=== PATIENT | male | born 1980 | race Caucasian/White ===

== ENCOUNTER 2018-05-07 17:49 | Emergency (ER) | payer OTHER, SELFPAY ==
[2018-05-07 17:57] VITALS: BP 157/88; PULSE 76; RESP 15; TEMP 36.4; O2SAT 100; BMI 26.0
--- NOTE | 2018-05-07 18:11 | PC.NURSE ---
pt c/o left arm pain describes it as like i bench pressed 400lbs, and tore my muscle.
--- NOTE | 2018-05-07 18:21 | DI.CT.S_ITS ---
PROCEDURE: CT HEAD/BRAIN WO CON INDICATIONS: confusion, arm weakness TECHNIQUE: Noncontrast 4.5 mm thick angled axial sections acquired from the foramen magnum to the vertex, with coronal and sagittal reformats. For radiation dose reduction, the following was used: automated exposure control, adjustment of mA and/or kV according to patient size. COMPARISON: None. FINDINGS: Image quality: Excellent. CSF spaces: Basal cisterns are patent. No extra-axial fluid collections. Ventricles are normal in size and shape. Brain: No midline shift. No intracranial masses or hemorrhage. Carrillo-white matter interface is normal. Skull and face: Calvarium and visualized facial bones are intact, without suspicious lesions. Sinuses: Visualized sinuses and mastoids are clear. IMPRESSION: No acute intracranial abnormality. Dictated by: Kena Stafford M.D. on 05/07/2018 at 19:01 Approved by: Kena Stafford M.D. on 05/07/2018 at 19:01
--- NOTE | 2018-05-07 18:21 | DI.RAD.S_ITS ---
PROCEDURE: XR CHEST 1V INDICATIONS: possible barotrauma TECHNIQUE: One view of the chest was acquired. COMPARISON: None. FINDINGS: Surgical changes and devices: None. Lungs and pleura: No pleural effusions or pneumothorax. Lungs are clear. Mediastinum: Mediastinal contours appear normal. Heart size is normal. Bones and chest wall: No suspicious bony lesions. Overlying soft tissues appear unremarkable. IMPRESSION: No acute process. Dictated by: Kena Stafford M.D. on 05/07/2018 at 19:00 Approved by: Kena Stafford M.D. on 05/07/2018 at 19:01
[2018-05-07 18:42] LABS: HCO3 ABG 26 mmol/L (23-27); PO2 ABG 80 mmHg (80-105); pH ABG 7.51 (7.35-7.45)
[2018-05-07 18:43] LABS: Fractionated Inspired Oxygen 21; Oxygen Saturation ABG 97 % (95-100); TCO2 ABG 26 mmol/L (23-27)
[2018-05-07] MEDS: KETOROLAC 60 MG/2 ML VIAL 15 MG IV (18:56)
--- NOTE | 2018-05-07 18:56 | ED.EXTPRO ---
HPI - Extremity Problem General Chief complaint: Extremity Problem,Nontraumatic Stated complaint: de-compression sickness from diving Time Seen by Provider: 05/07/18 18:12 Source: patient Mode of arrival: ambulatory Limitations: no limitations History of Present Illness HPI Narrative: 38-year-old otherwise healthy male presents to the emergency department with his and a chief complaint of left shoulder and upper arm pain since yesterday. 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 All guys were approximately 30 min and the patient's total bottom time about 4 hr. He was breathing compressed air and performed safety stops on each a set. The patient took a minimal 15 min break and maximal 1 hr break between each dive. His maximum depth was 75 ft. He started developing pain at about 3:30 p.m.. He had multiple dives after the onset of his pain and states that on subsequent dives his pain improved. He denies any chest pain, shortness of breath and blurred vision. Patient went to work again today and attempted to dive and felt so poorly that he was unable to complete his work because of the pain and now bilateral upper extremity weakness. He had no thorough evaluation scene. He waited until today because he thought maybe the shoulder pain yesterday was purely an orthopedic injury. He does not obviously have a worsening of his symptoms with range of motion. Complaint: extremity pain Onset (ago): hour(s) Pain Consistency: constant Location: left Quality: aching Radiation: none Relieving factors: nothing Exacerbating factors: range of motion Related Data Home Medications Medication Instructions Recorded Confirmed aspirin-caffeine 500 mg-32.5 mg tab PO tab 05/07/18 05/07/18 tablet ibuprofen 800 mg tablet 800 mg PO TID 05/07/18 05/07/18 Allergies Allergy/AdvReac Type Severity Reaction Status Date / Time Penicillins Allergy Verified 05/07/18 17:57 Review of Systems Review of Systems All systems reviewed & are unremarkable except as noted in HPI and below Constitutional Denies chills, Denies fever(s), Denies lethargy and Denies weakness Eyes Denies change in vision, Denies eye discharge, Denies irritation and Denies loss of vision ENT Ears, Nose, Mouth, and Throat: Denies change in voice, Denies neck pain and Denies sore throat Cardiovascular Denies chest pain, Denies irregular heart rhythm, Denies lightheadedness, Denies palpitations, Denies dyspnea, Denies dyspnea on exertion and Denies orthopnea Respiratory Denies cough, Denies dyspnea, Denies dyspnea on exertion and Denies wheezing Gastrointestinal Gastrointestinal: Denies abdominal pain, Denies change in bowel habits, Denies diarrhea, Denies nausea and Denies vomiting Genitourinary Denies hematuria, Denies flank pain, Denies urinary incontinence and Denies urinary urgency Musculoskeletal Reports limited range of motion and Denies neck pain Integumentary/Breasts Denies pruritus, Denies erythema, Denies rash and Denies wounds Neurologic Denies confusion, Denies loss of vision and Denies weakness Psychiatric Denies anxiety, Denies confusion, Denies depression, Denies homicidal ideation and Denies suicidal ideation Endocrine Denies palpitations Hematologic/Lymphatic Denies easy bruising Allergic/Immunologic Denies wheezing [facility] Social History Smoking Status: Never smoker alcohol intake: current Exam Narrative Exam Narrative: GENERAL: This is a well-nourished, well-developed patient, in mild distress. HEAD: Atraumatic. Normocephalic. No temporal or scalp tenderness. EYES: Pupils equal round and reactive. Extraocular motions intact. No scleral icterus. No injection or drainage. ENT: Nose without bleeding, purulent drainage or septal hematoma. Throat without erythema, tonsillar hypertrophy or exudate. Uvula midline. Airway patent. NECK: Trachea midline. No JVD or lymphadenopathy. Supple, nontender, no meningeal signs. CARDIOVASCULAR: Regular rate and rhythm without murmurs, gallops, or rubs. RESPIRATORY: Clear to auscultation. Breath sounds equal bilaterally. No wheezes, rales, or rhonchi. GASTROINTESTINAL: Abdomen soft, non-tender, nondistended. No hepato-splenomegaly, or palpable masses. No guarding. EXTREMITIES: No clubbing, cyanosis, or edema. No joint tenderness, effusion, or edema noted. No obvious or reproducible pain with range of motion BACK: Nontender without deformity or crepitance. No flank tenderness. NEURO: AOx3. SKIN: No rash or erythema. NIH Stroke Scale 1a. LOC: Patient is alert and keenly responsive (0) 1b. LOC Questions: Patient answers both LOC questions accurately (0) 1c. LOC Commands: Patient performs both tasks correctly (0) 2. Best Gaze: Normal (0) 3. Visual: No visual loss (0) 4. Facial palsy: Normal symmetrical movements (0) 5. Motor arm: No drift (0) 6. Motor leg: No drift (0) 7. Limb ataxia: Absent (0) 8. Sensory: Normal (0) 9. Best language: No aphasia; normal (0) 10. Dysarthria: Normal (0) 11. Extinction and inattention: No abnormality (0) NIHSS: 0 Initial Vital Signs Initial Vital Signs: Vital Signs Temperature 97.5 F L 05/07/18 17:57 Pulse Rate 76 05/07/18 17:57 Respiratory Rate 15 05/07/18 17:57 Blood Pressure 157/88 H 05/07/18 17:57 Pulse Oximetry 100 05/07/18 17:57 Course Course Narrative: Symptoms and presentation are most worrisome for decompression illness. I initially contacted the diapers alert at work and they sure the opinion that a discussion with [facility] is most appropriate. I have spoken with the dive medicine provider at [facility], Dr. Nelson, whom sugars the opinion transfer for barometric treatment as most appropriate. I have contacted [facility] a regarding this case and they agree with the plan of made a note Orders Ordered: ED Orders 05/07/18 18:10 EKG-12 Lead Routine 05/07/18 18:21 CT head/brain wo con Stat XR chest 1V Stat 05/07/18 18:30 Arterial Blood Gas Stat 05/07/18 18:45 Complete Blood Count AUTO DIFF Stat Comprehensive Metabolic Panel Stat Troponin & CK Cardiac Panel Stat 05/07/18 19:05 Lactate (Lactic Acid) Stat Discontinued Medications Hydromorphone HCl (Dilaudid) 0.5 mg IV NOW ONE Stop: 05/07/18 22:46 Last Admin: 05/07/18 23:00 Dose: 0.5 mg Ketorolac Tromethamine (Toradol) 15 mg IV NOW ONE Stop: 05/07/18 18:25 Last Admin: 05/07/18 18:56 Dose: 15 mg Vital Signs - 8 hr 05/07/18 17:57 05/07/18 21:00 05/07/18 21:30 Temperature 97.5 F L Pulse Rate 76 78 85 Respiratory Rate 15 14 Blood Pressure 157/88 H Blood Pressure [Left Arm] 143/85 H 146/78 H Pulse Oximetry 100 100 100 05/07/18 22:30 05/07/18 23:14 Temperature Pulse Rate 83 85 Respiratory Rate 15 15 Blood Pressure 135/65 Blood Pressure [Left Arm] 132/78 Pulse Oximetry 100 100 MDM - Extremity (Nontraumatic) Lab Data Result diagrams: 05/07/18 18:45 05/07/18 18:45 Lab Results 05/07/18 05/07/18 05/07/18 Range/Units 18:30 18:45 18:45 WBC 8.4 (4.5-11.0) X10^3/uL RBC 4.68 (4.5-5.9) X10^6/uL Hgb 14.3 (13.5-17.5) g/dL Hct 40.9 L (41-53) % MCV 87.5 (80-100) fL MCH 30.5 (26-34) PG MCHC 34.9 (30-36) % RDW 12.4 (11.6-14.8) % Plt Count 202 (150-400) X10^3/uL Neut % (Auto) 70.9 (50-75) % Lymph % (Auto) 19.5 L (25-40) % Haines % (Auto) 6.4 (3-14) % Eos % (Auto) 2.4 (2-4) % Baso % (Auto) 0.8 (0-2) % Neut # (Auto) 6000 H (8385-7336) /uL ABG pH 7.51 H (7.35-7.45) ABG pCO2 32.0 L (35-45) mmHg ABG pO2 80 (80-105) mmHg ABG HCO3 26 (23-27) mmol/L ABG Total CO2 26 (23-27) mmol/L ABG O2 Saturation 97 (95-100) % ABG Base Excess 2.0 (-2-3) mmol/L FiO2 21 Sodium 140 (137-145) mmol/L Potassium 4.0 (3.4-5.1) mmol/L Chloride 103 (98-107) mmol/L Carbon Dioxide 27 (22-32) mmol/L BUN 17 (9-20) mg/dL Creatinine 0.80 (0.66-1.25) mg/dL Estimated GFR > 60.0 (>60) mL/min BUN/Creatinine Ratio 21.3 (6-22) Glucose 101 H (70-100) mg/dL Lactate (0.7-2.1) mmol/L Calcium 9.6 (8.4-10.2) mg/dL Total Bilirubin 0.7 (0.2-1.3) mg/dL AST 37 (17-59) IU/L ALT 48 (21-72) IU/L Alkaline Phosphatase 56 (38-126) U/L Total Creatine Kinase 204 H (55-170) U/L CK-MB (CK-2) 1.23 (<2.37) ng/mL CK-MB (CK-2) Rel Index 0.6 L (1.5-5.0) % Troponin I < 0.012 (0.01-0.034) ng/mL Total Protein 7.6 (6.3-8.2) g/dL Albumin 4.5 (3.5-5.0) g/dL Globulin 3.1 (1.7-4.1) g/dL Albumin/Globulin Ratio 1.5 (1.0-2.8) 05/07/18 Range/Units 19:05 WBC (4.5-11.0) X10^3/uL RBC (4.5-5.9) X10^6/uL Hgb (13.5-17.5) g/dL Hct (41-53) % MCV (80-100) fL MCH (26-34) PG MCHC (30-36) % RDW (11.6-14.8) % Plt Count (150-400) X10^3/uL Neut % (Auto) (50-75) % Lymph % (Auto) (25-40) % Haines % (Auto) (3-14) % Eos % (Auto) (2-4) % Baso % (Auto) (0-2) % Neut # (Auto) (7922-2505) /uL ABG pH (7.35-7.45) ABG pCO2 (35-45) mmHg ABG pO2 (80-105) mmHg ABG HCO3 (23-27) mmol/L ABG Total CO2 (23-27) mmol/L ABG O2 Saturation (95-100) % ABG Base Excess (-2-3) mmol/L FiO2 Sodium (137-145) mmol/L Potassium (3.4-5.1) mmol/L Chloride (98-107) mmol/L Carbon Dioxide (22-32) mmol/L BUN (9-20) mg/dL Creatinine (0.66-1.25) mg/dL Estimated GFR (>60) mL/min BUN/Creatinine Ratio (6-22) Glucose (70-100) mg/dL Lactate 1.2 (0.7-2.1) mmol/L Calcium (8.4-10.2) mg/dL Total Bilirubin (0.2-1.3) mg/dL AST (17-59) IU/L ALT (21-72) IU/L Alkaline Phosphatase (38-126) U/L Total Creatine Kinase (55-170) U/L CK-MB (CK-2) (<2.37) ng/mL CK-MB (CK-2) Rel Index (1.5-5.0) % Troponin I (0.01-0.034) ng/mL Total Protein (6.3-8.2) g/dL Albumin (3.5-5.0) g/dL Globulin (1.7-4.1) g/dL Albumin/Globulin Ratio (1.0-2.8) Imaging Data CT scan - head: Radiologist's impression: [place] [address] CT Scan Report Signed Patient: Lj Goff [facility]#: [id number] : 1980Acct:[id number] Age/Sex: 38 / MDate of Service: 05/07/18 Loc: ED Accession Number: [id number] Procedure: CT head/brain wo con Ordering Provider: Adonis Toro D.O. PROCEDURE: CT HEAD/BRAIN WO CON INDICATIONS: confusion, arm weakness TECHNIQUE: Noncontrast 4.5 mm thick angled axial sections acquired from the foramen magnum to the vertex, with coronal and sagittal reformats. For radiation dose reduction, the following was used: automated exposure control, adjustment of mA and/or kV according to patient size. COMPARISON: None. FINDINGS: Image quality: Excellent. CSF spaces: Basal cisterns are patent. No extra-axial fluid collections. Ventricles are normal in size and shape. Brain: No midline shift. No intracranial masses or hemorrhage. Carrillo-white matter interface is normal. Skull and face: Calvarium and visualized facial bones are intact, without suspicious lesions. Sinuses: Visualized sinuses and mastoids are clear. IMPRESSION: No acute intracranial abnormality. Dictated by: Kena Stafford M.D. on 05/07/2018 at 19:01 Approved by: Kena Stafford M.D. on 05/07/2018 at 19:01 Chest x-ray: Attestation: I personally reviewed and interpreted this imaging study as follows: My impression: NAP Radiologist's impression: [address] [address] [address] Scan Report Signed Patient: Lj Goff [facility]#: [id number] : 1980Acct:[id number] Age/Sex: 38 / MDate of Service: 05/07/18 Loc: ED Accession Number: [id number] Procedure: CT head/brain wo con Ordering Provider: Adonis Toro D.O. PROCEDURE: CT HEAD/BRAIN WO CON INDICATIONS: confusion, arm weakness TECHNIQUE: Noncontrast 4.5 mm thick angled axial sections acquired from the foramen magnum to the vertex, with coronal and sagittal reformats. For radiation dose reduction, the following was used: automated exposure control, adjustment of mA and/or kV according to patient size. COMPARISON: None. FINDINGS: Image quality: Excellent. CSF spaces: Basal cisterns are patent. No extra-axial fluid collections. Ventricles are normal in size and shape. Brain: No midline shift. No intracranial masses or hemorrhage. Carrillo-white matter interface is normal. Skull and face: Calvarium and visualized facial bones are intact, without suspicious lesions. Sinuses: Visualized sinuses and mastoids are clear. PROCEDURE: XR CHEST 1V INDICATIONS: possible barotrauma TECHNIQUE: One view of the chest was acquired. COMPARISON: None. FINDINGS: Surgical changes and devices: None. Lungs and pleura: No pleural effusions or pneumothorax. Lungs are clear. Mediastinum: Mediastinal contours appear normal. Heart size is normal. Bones and chest wall: No suspicious bony lesions. Overlying soft tissues appear unremarkable. IMPRESSION: No acute process. Dictated by: Kena Stafford M.D. on 05/07/2018 at 19:00 Approved by: Kena Stafford M.D. on 05/07/2018 at 19:01 Discharge Plan Departure Patient Disposition: [facility] Clinical Impression: Decompression sickness Discharge Date/Time: 05/08/18 00:04 Interventions: ED Discharge Assessment Last Done: 05/07/18 23:14 Prescriptions: No Action ibuprofen 800 mg tablet 800 mg PO TID RF: 0 aspirin-caffeine [Sergio Back and Body] 500-32.5 mg tablet PO RF: 0
[2018-05-07 19:00] LABS: Add Manual Diff / Slide Review NO; Basophils Percent Auto 0.8 % (0-2); Eosinophils Percent Auto 2.4 % (2-4); Hematocrit 40.9 % (41-53); Hemoglobin 14.3 g/dL (13.5-17.5); Lymphocytes Percent Auto 19.5 % (25-40); Mean Corpuscular HGB Conc 34.9 % (30-36); Mean Corpuscular Hemoglobin 30.5 PG (26-34); Mean Corpuscular Volume 87.5 fL (80-100); Monocytes Percent Auto 6.4 % (3-14); Neutrophils Absolute Auto 6000 /uL (3000-5900); Neutrophils Percent Auto 70.9 % (50-75); Platelet Count 202 X10^3/uL (150-400); Red Blood Cell Count 4.68 X10^6/uL (4.5-5.9); Red Cell Distribution Width 12.4 % (11.6-14.8); White Blood Cell Count 8.4 X10^3/uL (4.5-11.0)
[2018-05-07 19:18] LABS: Alanine Aminotransferase 48 IU/L (21-72); Albumin 4.5 g/dL (3.5-5.0); Albumin Globulin Ratio 1.5 (1.0-2.8); Alkaline Phosphatase 56 U/L (38-126); Aspartate Aminotransferase 37 IU/L (17-59); BUN Creatinine Ratio 21.3 (6-22); Bilirubin Total 0.7 mg/dL (0.2-1.3); Blood Urea Nitrogen 17 mg/dL (9-20); Calcium 9.6 mg/dL (8.4-10.2); Carbon Dioxide 27 mmol/L (22-32); Chloride 103 mmol/L (98-107); Creatine Kinase 204 U/L (55-170); Estimated Glomerular Filt Rate > 60.0 mL/min (>60); Globulin 3.1 g/dL (1.7-4.1); Glucose 101 mg/dL (70-100); HEMOLYSIS < 15 (0-50); Sodium 140 mmol/L (137-145); Total Protein 7.6 g/dL (6.3-8.2)
[2018-05-07 19:34] LABS: CKMB % Relative Index 0.6 % (1.5-5.0); Creatine Kinase MB 1.23 ng/mL (<2.37); Troponin I < 0.012 ng/mL (0.01-0.034)
[2018-05-07 19:39] LABS: Lactate (Lactic Acid) 1.2 mmol/L (0.7-2.1)
[2018-05-07 21:00] VITALS: BP 143/85; PULSE 78; RESP 14; O2SAT 100
[2018-05-07 21:30] VITALS: BP 146/78; PULSE 85; O2SAT 100
[2018-05-07 22:30] VITALS: BP 132/78; PULSE 83; RESP 15; O2SAT 100
--- NOTE | 2018-05-07 22:45 | ED_ITS ---
HPI - Extremity Problem General Chief complaint: Extremity Problem,Nontraumatic Stated complaint: de-compression sickness from diving Time Seen by Provider: 05/07/18 18:12 Source: patient Mode of arrival: ambulatory Limitations: no limitations History of Present Illness HPI Narrative: 38-year-old otherwise healthy male presents to the emergency department with his and a chief complaint of left shoulder and upper arm pain since yesterday. 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 All guys were approximately 30 min and the patient's total bottom time about 4 hr. He was breathing compressed air and performed safety stops on each a set. The patient took a minimal 15 min break and maximal 1 hr break between each dive. His maximum depth was 75 ft. He started developing pain at about 3:30 p.m.. He had multiple dives after the onset of his pain and states that on subsequent dives his pain improved. He denies any chest pain, shortness of breath and blurred vision. Patient went to work again today and attempted to dive and felt so poorly that he was unable to complete his work because of the pain and now bilateral upper extremity weakness. He had no thorough evaluation scene. He waited until today because he thought maybe the shoulder pain yesterday was purely an orthopedic injury. He does not obviously have a worsening of his symptoms with range of motion. Complaint: extremity pain Onset (ago): hour(s) Pain Consistency: constant Location: left Quality: aching Radiation: none Relieving factors: nothing Exacerbating factors: range of motion Related Data Home Medications Medication Instructions Recorded Confirmed aspirin-caffeine 500 mg-32.5 mg tab PO tab 05/07/18 05/07/18 tablet ibuprofen 800 mg tablet 800 mg PO TID 05/07/18 05/07/18 Allergies Allergy/AdvReac Type Severity Reaction Status Date / Time Penicillins Allergy Verified 05/07/18 17:57 Review of Systems Review of Systems All systems reviewed & are unremarkable except as noted in HPI and below Constitutional Denies chills, Denies fever(s), Denies lethargy and Denies weakness Eyes Denies change in vision, Denies eye discharge, Denies irritation and Denies loss of vision ENT Ears, Nose, Mouth, and Throat: Denies change in voice, Denies neck pain and Denies sore throat Cardiovascular Denies chest pain, Denies irregular heart rhythm, Denies lightheadedness, Denies palpitations, Denies dyspnea, Denies dyspnea on exertion and Denies orthopnea Respiratory Denies cough, Denies dyspnea, Denies dyspnea on exertion and Denies wheezing Gastrointestinal Gastrointestinal: Denies abdominal pain, Denies change in bowel habits, Denies diarrhea, Denies nausea and Denies vomiting Genitourinary Denies hematuria, Denies flank pain, Denies urinary incontinence and Denies urinary urgency Musculoskeletal Reports limited range of motion and Denies neck pain Integumentary/Breasts Denies pruritus, Denies erythema, Denies rash and Denies wounds Neurologic Denies confusion, Denies loss of vision and Denies weakness Psychiatric Denies anxiety, Denies confusion, Denies depression, Denies homicidal ideation and Denies suicidal ideation Endocrine Denies palpitations Hematologic/Lymphatic Denies easy bruising Allergic/Immunologic Denies wheezing [facility] Social History Smoking Status: Never smoker alcohol intake: current Exam Narrative Exam Narrative: GENERAL: This is a well-nourished, well-developed patient, in mild distress. HEAD: Atraumatic. Normocephalic. No temporal or scalp tenderness. EYES: Pupils equal round and reactive. Extraocular motions intact. No scleral icterus. No injection or drainage. ENT: Nose without bleeding, purulent drainage or septal hematoma. Throat without erythema, tonsillar hypertrophy or exudate. Uvula midline. Airway patent. NECK: Trachea midline. No JVD or lymphadenopathy. Supple, nontender, no meningeal signs. CARDIOVASCULAR: Regular rate and rhythm without murmurs, gallops, or rubs. RESPIRATORY: Clear to auscultation. Breath sounds equal bilaterally. No wheezes , rales, or rhonchi. GASTROINTESTINAL: Abdomen soft, non-tender, nondistended. No hepato-splenomegaly , or palpable masses. No guarding. EXTREMITIES: No clubbing, cyanosis, or edema. No joint tenderness, effusion, or edema noted. No obvious or reproducible pain with range of motion BACK: Nontender without deformity or crepitance. No flank tenderness. NEURO: AOx3. SKIN: No rash or erythema. NIH Stroke Scale 1a. LOC: Patient is alert and keenly responsive (0) 1b. LOC Questions: Patient answers both LOC questions accurately (0) 1c. LOC Commands: Patient performs both tasks correctly (0) 2. Best Gaze: Normal (0) 3. Visual: No visual loss (0) 4. Facial palsy: Normal symmetrical movements (0) 5. Motor arm: No drift (0) 6. Motor leg: No drift (0) 7. Limb ataxia: Absent (0) 8. Sensory: Normal (0) 9. Best language: No aphasia; normal (0) 10. Dysarthria: Normal (0) 11. Extinction and inattention: No abnormality (0) NIHSS: 0 Initial Vital Signs Initial Vital Signs: Vital Signs Temperature 97.5 F L 05/07/18 17:57 Pulse Rate 76 05/07/18 17:57 Respiratory Rate 15 05/07/18 17:57 Blood Pressure 157/88 H 05/07/18 17:57 Pulse Oximetry 100 05/07/18 17:57 Course Course Narrative: Symptoms and presentation are most worrisome for decompression illness. I initially contacted the diapers alert at work and they sure the opinion that a discussion with [facility] is most appropriate. I have spoken with the dive medicine provider at [facility], Dr. Nelson, whom sugars the opinion transfer for barometric treatment as most appropriate. I have contacted [facility] a regarding this case and they agree with the plan of made a note Orders Ordered: ED Orders 05/07/18 18:10 EKG-12 Lead Routine 05/07/18 18:21 CT head/brain wo con Stat XR chest 1V Stat 05/07/18 18:30 Arterial Blood Gas Stat 05/07/18 18:45 Complete Blood Count AUTO DIFF Stat Comprehensive Metabolic Panel Stat Troponin & CK Cardiac Panel Stat 05/07/18 19:05 Lactate (Lactic Acid) Stat Discontinued Medications Hydromorphone HCl (Dilaudid) 0.5 mg IV NOW ONE Stop: 05/07/18 22:46 Last Admin: 05/07/18 23:00 Dose: 0.5 mg Ketorolac Tromethamine (Toradol) 15 mg IV NOW ONE Stop: 05/07/18 18:25 Last Admin: 05/07/18 18:56 Dose: 15 mg Vital Signs - 8 hr 05/07/18 17:57 05/07/18 21:00 05/07/18 21:30 Temperature 97.5 F L Pulse Rate 76 78 85 Respiratory Rate 15 14 Blood Pressure 157/88 H Blood Pressure [Left Arm] 143/85 H 146/78 H Pulse Oximetry 100 100 100 05/07/18 22:30 05/07/18 23:14 Temperature Pulse Rate 83 85 Respiratory Rate 15 15 Blood Pressure 135/65 Blood Pressure [Left Arm] 132/78 Pulse Oximetry 100 100 MDM - Extremity (Nontraumatic) Lab Data Result diagrams: 05/07/18 18:45 05/07/18 18:45 Lab Results 05/07/18 05/07/18 05/07/18 Range/Units 18:30 18:45 18:45 WBC 8.4 (4.5-11.0) X10^3/uL RBC 4.68 (4.5-5.9) X10^6/uL Hgb 14.3 (13.5-17.5) g/dL Hct 40.9 L (41-53) % MCV 87.5 (80-100) fL MCH 30.5 (26-34) PG MCHC 34.9 (30-36) % RDW 12.4 (11.6-14.8) % Plt Count 202 (150-400) X10^3/uL Neut % (Auto) 70.9 (50-75) % Lymph % (Auto) 19.5 L (25-40) % [place] % (Auto) 6.4 (3-14) % Eos % (Auto) 2.4 (2-4) % Baso % (Auto) 0.8 (0-2) % Neut # (Auto) 6000 H (7982-0370) /uL ABG pH 7.51 H (7.35-7.45) ABG pCO2 32.0 L (35-45) mmHg ABG pO2 80 (80-105) mmHg ABG HCO3 26 (23-27) mmol/L ABG Total CO2 26 (23-27) mmol/L ABG O2 Saturation 97 (95-100) % ABG Base Excess 2.0 (-2-3) mmol/L FiO2 21 Sodium 140 (137-145) mmol/L Potassium 4.0 (3.4-5.1) mmol/L Chloride 103 (98-107) mmol/L Carbon Dioxide 27 (22-32) mmol/L BUN 17 (9-20) mg/dL Creatinine 0.80 (0.66-1.25) mg/dL Estimated GFR > 60.0 (>60) mL/min BUN/Creatinine Ratio 21.3 (6-22) Glucose 101 H (70-100) mg/dL Lactate (0.7-2.1) mmol/L Calcium 9.6 (8.4-10.2) mg/dL Total Bilirubin 0.7 (0.2-1.3) mg/dL AST 37 (17-59) IU/L ALT 48 (21-72) IU/L Alkaline Phosphatase 56 (38-126) U/L Total Creatine Kinase 204 H (55-170) U/L CK-MB (CK-2) 1.23 (<2.37) ng/mL CK-MB (CK-2) Rel Index 0.6 L (1.5-5.0) % Troponin I < 0.012 (0.01-0.034) ng/mL Total Protein 7.6 (6.3-8.2) g/dL Albumin 4.5 (3.5-5.0) g/dL Globulin 3.1 (1.7-4.1) g/dL Albumin/Globulin Ratio 1.5 (1.0-2.8) 05/07/18 Range/Units 19:05 WBC (4.5-11.0) X10^3/uL RBC (4.5-5.9) X10^6/uL Hgb (13.5-17.5) g/dL Hct (41-53) % MCV (80-100) fL MCH (26-34) PG MCHC (30-36) % RDW (11.6-14.8) % Plt Count (150-400) X10^3/uL Neut % (Auto) (50-75) % Lymph % (Auto) (25-40) % [place] % (Auto) (3-14) % Eos % (Auto) (2-4) % Baso % (Auto) (0-2) % Neut # (Auto) (3025-5962) /uL ABG pH (7.35-7.45) ABG pCO2 (35-45) mmHg ABG pO2 (80-105) mmHg ABG HCO3 (23-27) mmol/L ABG Total CO2 (23-27) mmol/L ABG O2 Saturation (95-100) % ABG Base Excess (-2-3) mmol/L FiO2 Sodium (137-145) mmol/L Potassium (3.4-5.1) mmol/L Chloride (98-107) mmol/L Carbon Dioxide (22-32) mmol/L BUN (9-20) mg/dL Creatinine (0.66-1.25) mg/dL Estimated GFR (>60) mL/min BUN/Creatinine Ratio (6-22) Glucose (70-100) mg/dL Lactate 1.2 (0.7-2.1) mmol/L Calcium (8.4-10.2) mg/dL Total Bilirubin (0.2-1.3) mg/dL AST (17-59) IU/L ALT (21-72) IU/L Alkaline Phosphatase (38-126) U/L Total Creatine Kinase (55-170) U/L CK-MB (CK-2) (<2.37) ng/mL CK-MB (CK-2) Rel Index (1.5-5.0) % Troponin I (0.01-0.034) ng/mL Total Protein (6.3-8.2) g/dL Albumin (3.5-5.0) g/dL Globulin (1.7-4.1) g/dL Albumin/Globulin Ratio (1.0-2.8) Imaging Data CT scan - head: Radiologist's impression: [place] [address] CT Scan Report Signed Patient: Lj Goff [facility]#: [id number] : 1980Acct:[id number] Age/Sex: 38 / MDate of Service: 05/07/18 Loc: ED Accession Number: [id number] Procedure: CT head/brain wo con Ordering Provider: Adonis Toro D.O. PROCEDURE: CT HEAD/BRAIN WO CON INDICATIONS: confusion, arm weakness TECHNIQUE: Noncontrast 4.5 mm thick angled axial sections acquired from the foramen magnum to the vertex, with coronal and sagittal reformats. For radiation dose reduction, the following was used: automated exposure control, adjustment of mA and/or kV according to patient size. COMPARISON: None. FINDINGS: Image quality: Excellent. CSF spaces: Basal cisterns are patent. No extra-axial fluid collections. Ventricles are normal in size and shape. Brain: No midline shift. No intracranial masses or hemorrhage. Carrillo-white matter interface is normal. Skull and face: Calvarium and visualized facial bones are intact, without suspicious lesions. Sinuses: Visualized sinuses and mastoids are clear. IMPRESSION: No acute intracranial abnormality. Dictated by: Kena Stafford M.D. on 05/07/2018 at 19:01 Approved by: Kena Stafford M.D. on 05/07/2018 at 19:01 Chest x-ray: Attestation: I personally reviewed and interpreted this imaging study as follows: My impression: NAP Radiologist's impression: [address] [address] [address] Scan Report Signed Patient: Lj Goff [facility]#: [id number] : 1980Acct:[id number] Age/Sex: 38 / MDate of Service: 05/07/18 Loc: ED Accession Number: [id number] Procedure: CT head/brain wo con Ordering Provider: Adonis Toro D.O. PROCEDURE: CT HEAD/BRAIN WO CON INDICATIONS: confusion, arm weakness TECHNIQUE: Noncontrast 4.5 mm thick angled axial sections acquired from the foramen magnum to the vertex, with coronal and sagittal reformats. For radiation dose reduction, the following was used: automated exposure control, adjustment of mA and/or kV according to patient size. COMPARISON: None. FINDINGS: Image quality: Excellent. CSF spaces: Basal cisterns are patent. No extra-axial fluid collections. Ventricles are normal in size and shape. Brain: No midline shift. No intracranial masses or hemorrhage. Carrillo-white matter interface is normal. Skull and face: Calvarium and visualized facial bones are intact, without suspicious lesions. Sinuses: Visualized sinuses and mastoids are clear. PROCEDURE: XR CHEST 1V INDICATIONS: possible barotrauma TECHNIQUE: One view of the chest was acquired. COMPARISON: None. FINDINGS: Surgical changes and devices: None. Lungs and pleura: No pleural effusions or pneumothorax. Lungs are clear. Mediastinum: Mediastinal contours appear normal. Heart size is normal. Bones and chest wall: No suspicious bony lesions. Overlying soft tissues appear unremarkable. IMPRESSION: No acute process. Dictated by: Kena Stafford M.D. on 05/07/2018 at 19:00 Approved by: Kena Stafford M.D. on 05/07/2018 at 19:01 Discharge Plan Departure Patient Disposition: [facility] Clinical Impression: Decompression sickness Discharge Date/Time: 05/08/18 00:04 Interventions: ED Discharge Assessment Last Done: 05/07/18 23:14 Prescriptions: No Action ibuprofen 800 mg tablet 800 mg PO TID RF: 0 aspirin-caffeine [Sergio Back and Body] 500-32.5 mg tablet PO RF: 0
[2018-05-07] MEDS: HYDROMORPHONE 1 MG INJ 0.5 MG IV (23:00)
[2018-05-07 23:14] VITALS: BP 135/65; PULSE 85; RESP 15; O2SAT 100
== END 2018-05-08 00:04 | disposition short-term general hospital (02) ==
PROVIDERS: Emergency Provider Emergency Medicine
DX: T70.3XXA Caisson disease [decompression sickness], initial encounter (principal)
CPT/HCPCS: 36591; 36600; 70450; 71045; 80053; 82550; 82553; 82805; 83605; 84484; 85025; 93005; 96374; 96375; 99283; 99285; J1170; J1885